=== PATIENT | male | born 1945 | race Caucasian/White ===

== ENCOUNTER → 2018-07-23 11:34 | Outpatient (CLI) | payer OTHER, SELFPAY ==
--- NOTE | 2018-07-23 | DI.RAD.S_ITS ---
PROCEDURE: XR HIP W PEL IF DONE BILAT 2V INDICATIONS: SCIATICA TECHNIQUE: AP pelvis with lateral view(s) of the left and right hip(s). COMPARISON: None. FINDINGS: Bones: No fractures or dislocations. Pelvic ring appears intact. No suspicious bony lesions. Lower lumbar spondylosis. Moderate bilateral hip degeneration. Associated bilateral marginal spurring and subchondral sclerosis. There is widened appearance of the pubis symphysis. Sacroiliac joints appear normal in alignment. Degenerative para-articular sclerosis is present. Soft tissues: The visualized bowel gas pattern is normal. No suspicious soft tissue calcifications. IMPRESSION: Moderate bilateral hip degeneration. Lower lumbar degenerative disc disease. Widened appearance of the pubis symphysis, probably chronic although recommend clinical correlation. Dictated by: Brent Montero M.D. on 07/23/2018 at 14:40 Approved by: Brent Montero M.D. on 07/23/2018 at 14:42
--- NOTE | 2018-07-23 | DI.MRI.S_ITS ---
PROCEDURE: MR LUMBAR SPINE WO CON INDICATIONS: SCIATICA TECHNIQUE: Noncontrast sagittal T1 spin echo and T2 fast echo, sagittal STIR, axial T1 and T2 fast spin echo through the lumbar spine. In cases with scoliosis, additional coronal T2 fast spin echo may be performed. COMPARISON: [facility], CR, XR LUMBAR SPINE 2-3V, 07/23/2018, 12:25. FINDINGS: Image quality: Excellent. Alignment and Curvature: Mild levoconvex scoliotic curvature is noted. There is minimal anterolisthesis at L3-L4 and L4-L5 and minimal retrolisthesis at L5-S1. Bone Marrow: Marrow is of normal overall signal. No acute vertebral body compression fractures. Spinal Cord: Conus medullaris terminates at the L1 level. Visualized cord demonstrates normal signal and size. Paraspinous Soft Tissues: No paravertebral masses. T12-L1: No significant abnormality is seen. L1-L2: Moderate loss of disc height is seen. Loss of disc signal is seen. Mild to moderate disc bulge is seen. At least moderate facet hypertrophy is seen, with associated fluid within the facet joints themselves. There is mild right-sided and no significant left-sided neural foraminal narrowing seen. Moderate to severe central canal narrowing is seen, which is exacerbated by prominent epidural fat. This can be seen on series 6 image 10. L2-L3: Moderate to severe loss of disc height and disc signal are seen. Moderate disc bulge is seen, which is eccentric to the right. Moderate facet hypertrophy is seen, with associated moderate hypertrophy of the ligamentum flavum. There is mild right-sided and no significant left-sided neural foraminal narrowing seen. Moderate to severe central canal narrowing is seen, which is exacerbated by prominent epidural fat, particularly on the left, as on series 6 image 16. L3-L4: Moderate loss of disc height is seen. Loss of disc signal is seen. Moderate to prominent disc bulge is seen. There is a superimposed central/right disc extrusion, with superior migration of the disc material. Moderate facet hypertrophy is seen, with associated moderate hypertrophy of the ligamentum. Moderate to severe bilateral neural foraminal narrowing is seen. There is a degree of compression seen upon the exiting nerve roots. Severe central canal narrowing is seen at this level, as on series 6 image 21. This is exacerbated by prominent epidural fat. L4-L5: Mild loss of disc height is seen. Loss of disc signal is seen. Moderate disc bulge is seen, which is eccentric to the right. Moderate to prominent facet hypertrophy is seen. There is fluid within the left facet joint. There is moderate hypertrophy of the ligamentum flavum. There is at least moderate bilateral neural foraminal narrowing seen. There is severe central canal narrowing seen, as on series 6 image 27. L5-S1: Moderate to severe loss of disc height and disc signal are seen. Moderate generalized disc bulge is seen. Moderate facet joint hypertrophy is seen. There is moderate right-sided and at least moderate left-sided neural foraminal narrowing seen. Mild central canal narrowing is seen. IMPRESSION: Multiple levels of relatively prominent degenerative change are seen, including severe central canal narrowing at L3-L4 and L4-L5 and moderate to severe central canal narrowing at L1-L2 and L2-L3. At L3-L4 level, there is a central/right disc extrusion seen. Moderate to severe bilateral neural foraminal narrowing is seen at L3-L4, with associated L3 nerve root compression. Dictated by: Homar Velazquez M.D. on 07/23/2018 at 12:34 Approved by: Homar Velazquez M.D. on 07/23/2018 at 12:41
--- NOTE | 2018-07-23 | DI.RAD.S_ITS ---
PROCEDURE: XR LUMBAR SPINE 2-3V INDICATIONS: SCIATICA TECHNIQUE: 3 views of the lumbar spine were acquired. COMPARISON: [facility], MR, MR LUMBAR SPINE WO CON, 07/23/2018, 11:51. FINDINGS: Bones: 5 nonrib-bearing, lumbar type vertebral bodies are seen. Mild anterolisthesis is seen at L4-L5. Mild levoconvex scoliotic curvature is noted. No displaced fractures are seen. No suspicious lytic or blastic lesions are seen. Moderate disc space narrowing is seen at L1-L2 L3, and L3-L4. Moderate to severe disc space narrowing is seen at L5-S1. Endplate irregularity and sclerosis are seen, which are most prominent at L5-S1. Facet arthropathy is seen throughout, which is most prominent at L5-S1. Soft tissues: Overlying bowel gas pattern is normal. No suspicious soft tissue calcifications. IMPRESSION: Multiple levels of lumbar spine degenerative change are seen, which are most prominent at L5-S1. Grade 1 anterolisthesis is seen at L4-L5. Mild levoconvex scoliosis is seen. Dictated by: Homar Velazquez M.D. on 07/23/2018 at 13:35 Approved by: Homar Velazquez M.D. on 07/23/2018 at 13:37
== END ==
PROVIDERS: PCP Family Medicine; Visit Provider Family Medicine
DX: M47.26 Other spondylosis with radiculopathy, lumbar region (principal); M47.27 Other spondylosis with radiculopathy, lumbosacral region; M51.16 Intervertebral disc disorders with radiculopathy, lumbar region; M51.17 Intervertebral disc disorders with radiculopathy, lumbosacral region; M48.061 Spinal stenosis, lumbar region without neurogenic claudication; M48.07 Spinal stenosis, lumbosacral region; M16.0 Bilateral primary osteoarthritis of hip; M84.351S Stress fracture, right femur, sequela; M43.16 Spondylolisthesis, lumbar region; M41.9 Scoliosis, unspecified
CPT/HCPCS: 72100; 72148; 73521

== ENCOUNTER → 2021-01-12 11:49 | Outpatient (CLI) | payer MEDICARE, SELFPAY ==
[2021-01-12 19:09] LABS: Hemoglobin A1C% w Est Avg Glu 5.8 % (4.0-6.0)
[2021-01-12 19:10] LABS: Cholesterol 221 mg/dL (140-199); HDL Cholesterol 56 mg/dL (40-60); LDL Cholesterol Calculated 138 mg/dL (<100); Triglycerides 136 mg/dL (35-150)
[2021-01-12 19:14] LABS: Alanine Aminotransferase 28 IU/L (<50); Albumin 4.2 g/dL (3.5-5.0); Albumin Globulin Ratio 1.4 (1.0-2.8); Alkaline Phosphatase 80 U/L (38-126); Aspartate Aminotransferase 32 IU/L (17-59); BUN Creatinine Ratio 24.8 (6-22); Bilirubin Total 0.7 mg/dL (0.2-1.3); Blood Urea Nitrogen 28 mg/dL (9-20); Calcium 9.8 mg/dL (8.4-10.2); Carbon Dioxide 24 mmol/L (22-32); Chloride 106 mmol/L (98-107); Estimated Glomerular Filt Rate > 60.0 mL/min (>60); Globulin 3.1 g/dL (1.7-4.1); Glucose 99 mg/dL (80-110); HEMOLYSIS < 15 (0-50); Potassium 4.6 mmol/L (3.4-5.1); Sodium 141 mmol/L (137-145); Total Protein 7.3 g/dL (6.3-8.2)
[2021-01-12 19:39] LABS: TSH w/ Reflex to FT4 1.75 uIU/mL (0.47-4.68)
== END ==
PROVIDERS: PCP Family Medicine; Referring Provider Family Medicine; Visit Provider Family Medicine
DX: E78.00 Pure hypercholesterolemia, unspecified (principal); I10 Essential (primary) hypertension; M48.061 Spinal stenosis, lumbar region without neurogenic claudication; N18.30 Chronic kidney disease, stage 3 unspecified; N40.0 Benign prostatic hyperplasia without lower urinary tract symptoms; Z68.43 Body mass index [BMI] 50.0-59.9, adult
CPT/HCPCS: 80053; 80061; 83036; 84443

== ENCOUNTER → 2021-05-30 11:26 | Outpatient (CLI) | payer MEDICARE, SELFPAY ==
--- NOTE | 2021-05-30 | DI.MRI.S_ITS ---
PROCEDURE: MR BRAIN (IAC) WWO CON INDICATIONS: Sudden idiopathic hearing loss, right ear TECHNIQUE: Noncontrast sagittal T1 spin echo, axial FLAIR, axial gradient echo, axial diffusion and ADC through the brain. Axial thin-slice 3D CISS, coronal TruFISP, axial T1 spin echo with fat saturation through the internal auditory canals. After the administration of contrast, thin slice axial and coronal T1 spin echo with fat saturation through the internal auditory canals, and axial T1 spin echo with fat saturation through the brain. COMPARISON: None. FINDINGS: Image quality: Excellent. Cranial nerves: No cerebellopontine angle masses. Visualized cranial nerves demonstrate no areas of abnormal signal, mass lesion or enhancement. 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 No extra-axial fluid collections. Basal cisterns are patent. Brain: No intracranial bleeds or mass effects. [place]-white matter interface is intact. No abnormal intracranial enhancement. Diffusion weighted images demonstrate no acute ischemic insults. Brainstem appears normal. Normal intravascular flow voids are present. Skull and face: Calvarial marrow signal is normal. Orbits appear normal. Sinuses: Sinuses and mastoids are clear. IMPRESSION: Cerebellopontine angles demonstrate no mass lesion, abnormal signal or enhancement. 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 Dictated by: Bria Ndiaye M.D. on 05/30/2021 at 21:14 Approved by: Bria Ndiaye M.D. on 05/30/2021 at 21:16
--- NOTE | 2021-05-30 11:28 | DI.MRI.S_ITS ---
PROCEDURE: MR LUMBAR SPINE WO CON INDICATIONS: Progressive lower back pain with increasing radiculopathy TECHNIQUE: Noncontrast sagittal T1 spin echo and T2 fast echo, sagittal STIR, axial T1 and T2 fast spin echo through the lumbar spine. In cases with scoliosis, additional coronal T2 fast spin echo may be performed. COMPARISON: [facility], MR, MR LUMBAR SPINE WO CON, 07/23/2018, 11:51. [facility] ([place] CR, XR LUMBAR SPINE 2-3V, 01/12/2021, 11:42. CR, XR LUMBAR SPINE 2-3V, 07/23/2018, 12:25. FINDINGS: Image quality: Excellent. Alignment and Curvature: There is normal bony alignment. Bone Marrow: Marrow is of normal overall signal. No acute vertebral body compression fractures. Spinal Cord: Conus medullaris terminates at the L1 level. Visualized cord demonstrates normal signal and size. Paraspinous Soft Tissues: No paravertebral masses. T12-L1: Loss of disc signal. Mild to moderate diffuse disc bulge. Moderate bilateral facet hypertrophy. Moderate narrowing of the central canal. Mild bilateral neural foraminal narrowing. No neural compression L1-L2: Loss of disc signal and height. Mild to moderate diffuse disc bulge. Moderate bilateral facet hypertrophy. Moderate narrowing of the central canal. Mild bilateral neural foraminal narrowing. No neural compression. L2-L3: Loss of disc signal. Mild, diffuse disc bulge. Moderate bilateral facet hypertrophy. Moderate narrowing of the central canal. No neural foraminal narrowing. No neural compression. L3-L4: Loss of disc signal and height. Moderate, diffuse disc bulge. Moderate to severe bilateral facet hypertrophy. Mild ligamentum flavum hypertrophy. Moderate to severe narrowing of the central canal. Moderate right and moderate to severe left neural foraminal narrowing with slight compression of the exiting left L3 nerve root. L4-L5: Loss of disc signal and slight loss of disc height. Mild, diffuse disc bulge severe bilateral facet hypertrophy. Severe narrowing of the central canal with compression of the nerve roots of the cauda equina. Mild to moderate right and moderate left neural foraminal narrowing. L5-S1: Loss of disc signal and height. Moderate, diffuse disc bulge. Mild bilateral facet hypertrophy. Mild narrowing of the central canal. Mild right and severe left neural foraminal narrowing with compression of the exiting left L5 nerve root. IMPRESSION: 1. Multilevel degenerative disc disease. 2. Multilevel facet arthropathy. 3. Severe L4-L5 central canal narrowing with compression of the nerve roots of the cauda equina. 4. Severe left L5-S1 neural foraminal narrowing with compression of the exiting left L5 nerve root. Moderate to severe left L3-L4 neural foraminal narrowing with slight compression of the exiting left L3 nerve root. Dictated by: Sharee Heck MD, PhD on 05/30/2021 at 17:29 Approved by: Sharee Heck MD, PhD on 05/30/2021 at 17:34
== END ==
PROVIDERS: PCP Family Medicine; Referring Provider Otolaryngology; Visit Provider Otolaryngology
DX: M48.061 Spinal stenosis, lumbar region without neurogenic claudication (principal); H90.3 Sensorineural hearing loss, bilateral; M51.16 Intervertebral disc disorders with radiculopathy, lumbar region; M51.17 Intervertebral disc disorders with radiculopathy, lumbosacral region; M47.26 Other spondylosis with radiculopathy, lumbar region; M47.27 Other spondylosis with radiculopathy, lumbosacral region; M48.07 Spinal stenosis, lumbosacral region
CPT/HCPCS: 70553; 72148; A9579

== ENCOUNTER → 2021-12-20 12:36 | Outpatient (CLI) | payer MEDICARE, SELFPAY ==
[2021-12-21 03:02] LABS: Hematocrit 44.8 % (41-53); Hemoglobin 14.8 g/dL (13.5-17.5); Mean Corpuscular HGB Conc 33.1 % (30-36); Mean Corpuscular Hemoglobin 29.9 PG (26-34); Mean Corpuscular Volume 90.4 fL (80-100); Platelet Count 225 X10^3/uL (150-400); Red Blood Cell Count 4.96 X10^6/uL (4.5-5.9); Red Cell Distribution Width 14.7 % (11.6-14.8); White Blood Cell Count 6.9 X10^3/uL (4.5-11.0)
[2021-12-21 03:08] LABS: Add Manual Diff / Slide Review YES
[2021-12-21 04:28] LABS: Hemoglobin A1C% w Est Avg Glu 5.7 % (4.0-6.0)
[2021-12-21 04:36] LABS: Cholesterol 177 mg/dL (140-199); HDL Cholesterol 54 mg/dL (40-60); LDL Cholesterol Calculated 107 mg/dL (<100); Triglycerides 81 mg/dL (35-150)
[2021-12-21 04:47] LABS: Alanine Aminotransferase 22 IU/L (<50); Albumin 3.8 g/dL (3.5-5.0); Albumin Globulin Ratio 1.4 (1.0-2.8); Alkaline Phosphatase 69 U/L (38-126); Aspartate Aminotransferase 25 IU/L (17-59); BUN Creatinine Ratio 26.5 (6-22); Bilirubin Total 0.7 mg/dL (0.2-1.3); Blood Urea Nitrogen 27 mg/dL (9-20); Calcium 9.5 mg/dL (8.4-10.2); Carbon Dioxide 27 mmol/L (22-32); Chloride 105 mmol/L (98-107); Estimated Glomerular Filt Rate > 60 mL/min (>60); Globulin 2.8 g/dL (1.7-4.1); Glucose 91 mg/dL (80-110); HEMOLYSIS < 15 (0-50); Potassium 4.7 mmol/L (3.4-5.1); Sodium 140 mmol/L (137-145); Total Protein 6.6 g/dL (6.3-8.2)
[2021-12-21 05:08] LABS: Prostate Specific Antigen Scrn 5.62 ng/mL (0.1-4.0)
[2021-12-21 07:15] LABS: Neutrophils Absolute Manual 4485 /uL (3000-5900); Total Cells Counted 100
[2021-12-21 07:16] LABS: RBC Morphology Normal Morphology
== END ==
PROVIDERS: PCP Family Medicine; Visit Provider Family Medicine
DX: Z11.59 Encounter for screening for other viral diseases (principal); Z12.11 Encounter for screening for malignant neoplasm of colon; Z12.5 Encounter for screening for malignant neoplasm of prostate; Z13.1 Encounter for screening for diabetes mellitus; Z13.220 Encounter for screening for lipoid disorders; E78.5 Hyperlipidemia, unspecified; I10 Essential (primary) hypertension; R73.9 Hyperglycemia, unspecified
CPT/HCPCS: 80053; 80061; 82947; 83036; 85007; 85025; G0103

== ENCOUNTER → 2022-08-15 10:36 | Outpatient (CLI) | payer MEDICARE, SELFPAY ==
[2022-08-15 19:20] LABS: Add Manual Diff / Slide Review NO; Basophils Absolute Auto 0 /uL (0-100); Basophils Percent Auto 0.4 % (0-2); Eosinophils Absolute Auto 100 /uL (0-450); Eosinophils Percent Auto 0.9 % (2-4); Hematocrit 45.3 % (41-53); Hemoglobin 15.4 g/dL (13.5-17.5); Lymphocytes Absolute Auto 1400 /uL (1100-4500); Lymphocytes Percent Auto 17.9 % (25-40); Mean Corpuscular Hemoglobin 30.5 PG (26-34); Mean Corpuscular Volume 89.7 fL (80-100); Monocytes Absolute Auto 700 /uL (0-900); Monocytes Percent Auto 8.4 % (3-14); Neutrophils Absolute Auto 5800 /uL (1500-7000); Neutrophils Percent Auto 72.4 % (50-75); Platelet Count 200 X10^3/uL (150-400); Red Blood Cell Count 5.05 X10^6/uL (4.5-5.9); Red Cell Distribution Width 14.6 % (11.6-14.8)
[2022-08-15 19:24] LABS: Alanine Aminotransferase 21 IU/L (<50); Albumin 3.8 g/dL (3.5-5.0); Albumin Globulin Ratio 1.4 (1.0-2.8); Alkaline Phosphatase 89 U/L (38-126); Aspartate Aminotransferase 25 IU/L (17-59); BUN Creatinine Ratio 20.5 (6-22); Bilirubin Total 0.8 mg/dL (0.2-1.3); Blood Urea Nitrogen 25 mg/dL (9-20); Calcium 9.3 mg/dL (8.4-10.2); Carbon Dioxide 27 mmol/L (22-32); Chloride 103 mmol/L (98-107); Cholesterol 194 mg/dL (140-199); Estimated Glomerular Filt Rate > 60 mL/min (>60); Globulin 2.8 g/dL (1.7-4.1); Glucose 86 mg/dL (80-110); HDL Cholesterol 53 mg/dL (40-60); HEMOLYSIS < 15 (0-50); LDL Cholesterol Calculated 120 mg/dL (<100); Potassium 4.6 mmol/L (3.4-5.1); Sodium 137 mmol/L (137-145); Total Protein 6.6 g/dL (6.3-8.2); Triglycerides 107 mg/dL (35-150)
[2022-08-15 19:39] LABS: Creatinine Urine Random 152.3 mg/dL
[2022-08-15 19:43] LABS: Microalbumi Creatinin Ratio Ur 24.2 ug/mg CR (<30); Microalbumin Urine Random 3.7 mg/dL (0-1.6)
[2022-08-15 19:50] LABS: Prostate Specific Antigen 6.23 ng/mL (0.10-4.00)
[2022-08-17 02:32] LABS: Labcorp Hemoglobin (Hb) A1c 5.8 % (4.8-5.6)
[2022-08-19 17:48] LABS: Hep C Virus Ab w/Reflex Quant NEGATIVE s/c (NEGATIVE)
== END ==
PROVIDERS: PCP Family Medicine; Visit Provider Family Medicine
DX: R73.03 Prediabetes (principal); Z11.59 Encounter for screening for other viral diseases; E78.2 Mixed hyperlipidemia; E78.5 Hyperlipidemia, unspecified; N13.8 Other obstructive and reflux uropathy; N18.32 Chronic kidney disease, stage 3b; I10 Essential (primary) hypertension; N40.1 Benign prostatic hyperplasia with lower urinary tract symptoms; R97.20 Elevated prostate specific antigen [PSA]
CPT/HCPCS: 80053; 80061; 82043; 82570; 83036; 84153; 85025; 86803

== ENCOUNTER → 2022-11-18 09:00 | Outpatient (CLI) | payer MEDICARE, SELFPAY ==
[2022-11-18 20:13] LABS: Cholesterol 175 mg/dL (140-199); HDL Cholesterol 58 mg/dL (40-60); LDL Cholesterol Calculated 101 mg/dL (<100); Triglycerides 81 mg/dL (35-150)
[2022-11-18 20:20] LABS: Hemoglobin A1C% w Est Avg Glu 5.3 % (4.0-6.0)
[2022-11-18 20:43] LABS: Prostate Specific Antigen 7.16 ng/mL (0.10-4.00)
== END ==
PROVIDERS: PCP Family Medicine; Visit Provider Family Medicine
DX: E78.2 Mixed hyperlipidemia (principal); R73.03 Prediabetes; R97.20 Elevated prostate specific antigen [PSA]; Z68.43 Body mass index [BMI] 50.0-59.9, adult
CPT/HCPCS: 80061; 83036; 84153

== ENCOUNTER → 2023-02-11 13:01 | Outpatient (CLI) | payer MEDICARE, SELFPAY ==
[2023-02-14 07:18] LABS: PSA, Total 5.2 ng/mL (0.0-4.0)
== END ==
PROVIDERS: PCP Family Medicine; Visit Provider Family Medicine
DX: R97.20 Elevated prostate specific antigen [PSA] (principal)
CPT/HCPCS: 84153; 84154

== ENCOUNTER → 2023-12-08 09:28 | Outpatient (CLI) | payer MEDICARE, SELFPAY ==
[2023-12-08 20:26] LABS: Add Manual Diff / Slide Review NO; Basophils Absolute Auto 0 /uL (0-100); Basophils Percent Auto 0.4 % (0-2); Eosinophils Absolute Auto 100 /uL (0-450); Eosinophils Percent Auto 0.9 % (2-4); Hemoglobin 14.1 g/dL (13.5-17.5); Lymphocytes Absolute Auto 1300 /uL (1100-4500); Lymphocytes Percent Auto 17.3 % (25-40); Mean Corpuscular HGB Conc 33.5 % (30-36); Mean Corpuscular Hemoglobin 30.4 PG (26-34); Mean Corpuscular Volume 90.9 fL (80-100); Monocytes Absolute Auto 600 /uL (0-900); Monocytes Percent Auto 7.5 % (3-14); Neutrophils Absolute Auto 5600 /uL (1500-7000); Neutrophils Percent Auto 73.9 % (50-75); Platelet Count 254 X10^3/uL (150-400); Red Blood Cell Count 4.62 X10^6/uL (4.5-5.9); Red Cell Distribution Width 15.6 % (11.6-14.8); White Blood Cell Count 7.5 X10^3/uL (4.5-11.0)
[2023-12-08 20:37] LABS: Hemoglobin A1C% w Est Avg Glu 5.6 % (4.0-6.0)
[2023-12-08 20:39] LABS: BUN Creatinine Ratio 30.2 (6-22); Blood Urea Nitrogen 35 mg/dL (9-20); Calcium 9.8 mg/dL (8.4-10.2); Carbon Dioxide 24 mmol/L (22-32); Chloride 108 mmol/L (98-107); Cholesterol 227 mg/dL (140-199); Estimated Glomerular Filt Rate > 60 mL/min (>60); Glucose 90 mg/dL (80-110); HDL Cholesterol 59 mg/dL (40-60); HEMOLYSIS < 15 (0-50); LDL Cholesterol Calculated 149 mg/dL (<100); Potassium 4.7 mmol/L (3.4-5.1); Sodium 140 mmol/L (137-145); Triglycerides 96 mg/dL (35-150)
[2023-12-08 21:05] LABS: Prostate Specific Antigen 11.2 ng/mL (0.10-4.00)
[2023-12-08 21:31] LABS: Creatinine Urine Random 88.81 mg/dL
[2023-12-08 21:39] LABS: Microalbumin Urine Random 1.5 mg/dL (0-1.6)
== END ==
PROVIDERS: PCP Family Medicine; Visit Provider Family Medicine
DX: I10 Essential (primary) hypertension (principal); R73.03 Prediabetes; E78.2 Mixed hyperlipidemia; M85.80 Other specified disorders of bone density and structure, unspecified site; Z68.42 Body mass index [BMI] 45.0-49.9, adult; R97.20 Elevated prostate specific antigen [PSA]
CPT/HCPCS: 80048; 80061; 82043; 82570; 83036; 84153; 84155; 84165; 85025

== ENCOUNTER → 2024-03-02 11:02 | Outpatient (CLI) | payer MEDICARE, SELFPAY ==
--- NOTE | 2024-03-02 11:04 | DI.MRI.S_ITS ---
PROCEDURE: MR PELVIC PROSTATE PROTOCOL INDICATIONS: Elevated and rising PSA TECHNIQUE: Coronal HASTE, axial T1 FSE with fat saturation, 3-plane nonbreath-hold T2 FSE. After the administration of contrast, dynamic axial, delayed axial and coronal VIBE or 2-D FLASH with fat saturation through the pelvis. Diffusion weighted imaging and ADC was performed. COMPARISON: None. FINDINGS: Image quality: Diffusion weighted and dynamic contrast enhanced images are diagnostic. Prostate: Gland size is 4.1 x 4.6 x 5 cm; ellipsoid gland volume is 49 mL. PSA density is estimated at 0.115 Lenticular shape PI-RADS 5 lesion is seen in the left lateral peripheral zone mid gland (/, 6/) measured 1.5 x 0.8 x 0.9 cm. No definite extracapsular disease. T2 score 5. DWI score 5. DCE positive. The extent capsular contact for this lesion raises concern for micro capsular involvement if targeted biopsies are positive. The seminal vesicles are unremarkable. Transitional zone heterogenous nodules are present, either well encapsulated or mostly encapsulated, compatible with PI-RADS 1 or 2 likely BPH nodules. Genitourinary system: Probable small bladder stones are present, trabeculated bladder may be from chronic obstruction. Bowel and peritoneum: Colonic diverticula. No small bowel obstruction in the lower abdomen. No pathologic ascites Nodes and vessels: No pathologic lymph nodes seen by size criteria. No aneurysmal vessel within the field of view Soft tissues: Pelvic wall is unremarkable Bones: There is an ill-defined enhancing lesion in the right posterior iliac bone (22/135). IMPRESSION: PI-RADS 5 lesion measuring up to 1.5 cm in the left mid gland lateral peripheral zone. There is a right posterior iliac enhancing bone lesion. The patient's PSA density is not necessarily in the range that would suggest widespread metastatic disease, however this lesion remains indeterminate by MRI. Bone scan or prostate PET-CT could be helpful. This is also amenable to CT-guided sampling if necessary. Dictated by: Alexander Lay M.D. on 03/02/2024 at 14:07 Approved by: Alexander Lay M.D. on 03/02/2024 at 14:16
== END ==
PROVIDERS: PCP Family Medicine; Referring Provider Urology; Visit Provider Urology
DX: N42.9 Disorder of prostate, unspecified (principal); M89.9 Disorder of bone, unspecified; R97.20 Elevated prostate specific antigen [PSA]; K57.90 Diverticulosis of intestine, part unspecified, without perforation or abscess without bleeding; N32.89 Other specified disorders of bladder
CPT/HCPCS: 72197; A9579

== ENCOUNTER 2024-04-15 07:49 | Outpatient (CLI) | payer MEDICARE, OTHER, SELFPAY ==
[2024-04-15] VITALS (8 sets, daily range): BP systolic 111–152; BP diastolic 64–82; PULSE 61–79; RESP 11–19; TEMP 36; O2SAT 96–98
--- NOTE | 2024-04-15 07:55 | DI.RAD.S_ITS ---
PROCEDURE: PAIN L INTERLAMINAR/CAUDAL INJ INDICATIONS: para left L4/5 TL DARIEN COMPARISON: None. FINDINGS/IMPRESSION: Fluoroscopic spot filming was performed to verify placement of spinal needles at the L4-5 level(s), as labeled on the films. Appropriate location(s) of the needle tip(s) was confirmed by injection of iodinated contrast. Dictated by: Elliott Hobbs M.D. on 04/15/2024 at 11:26 Approved by: Elliott Hobbs M.D. on 04/15/2024 at 11:28
[2024-04-15] MEDS: MIDAZOLAM 2 MG/2 ML VIAL IV (08:52)
--- NOTE | 2024-04-15 08:56 | PC.NURSE ---
Patient identified to be in afib with a rate in the 70's-80's during the timeout. Dr. Brunner aware. rhythm printed for patient to take to his PCP.
[2024-04-15] MEDS: BETAMETHASONE 30 MG/5 ML MDV 12 MG INJ (08:59)
[2024-04-15] MEDS: BUPIVACAINE 0.25% (PF) VIAL 2 ML INJ (08:59)
[2024-04-15] MEDS: iopamidoL 15 ML VIAL 3 ML INJ (09:00)
[2024-04-15] MEDS: DEXAMETHASONE 10 MG/ML VIAL INJ (09:00)
--- NOTE | 2024-04-15 09:07 | P.PCN_ITS ---
Date/Time/Diagnoses Date of procedure: 04/15/24 Time of procedure: 09:08 Pre-procedure diagnosis: 1. HNP WITH RADICULAR FEATURES, 2. MULTILEVEL CENTRAL STENOSIS, Post-procedure diagnosis: same Procedure Notes Procedure: 1. FLUOROSCOPICALLY GUIDED CONTRAST CONTROLLED INTERLAMINAR EPIDURAL STEROID INJECTION -L4/5 Indications: John is referred by Dr. Boone for treatment of Bilateral Foraminal Stenosis R>L LE symptoms. Physician: Kvng Brunner Total Fluoroscopy time (seconds): 7 Total sedation minutes: 11 Complications: none Procedure in detail & Post-procedure care: FINDINGS Multilevel Central Spinal Stenosis with Nerve Root Compression DESCRIPTION OF PROCEDURE Fluoroscopically guided, contrast-controlled L4/5 translaminar epidural steroid injection. Following review of allergy and review of potential side effects and complications, including, but not necessarily limited to, infection, allergic reaction, local tissue breakdown, temporary as well as permanent nerve injury, paralysis, stroke and possible , the patient indicated that the patient understood and agreed to proceed. An informed consent document was signed by the patient, witnessed by a nurse, and placed in the patient's chart. Additionally, other treatment options including modalities, medications, and physical therapy were reviewed with the patient. After review of previous anaesthesic history and IV conscious sedation the patient was deemed safe to proceed with today?s procedure with IV conscious sedation as ASA class II designation. Safety time-out was performed to confirm patient ID, procedure to be performed and site of procedure. IV sedation was accomplished with a combination of 2mg of Versed was administered by the RN after DO order, titrated to patient comfort during the course of the procedure while the patient remained responsive to all verbal commands In the prone position, following sterile prep and drape of the lumbar region, the L4/5 translaminar space was identified fluoroscopically. The skin was anesthetized via a 25-gauge, 1.5inch needle with 1% lidocaine solution. At this point, a 22-gauge short bevel spinal needle was atraumatically introduced and advanced under fluoroscopic guidance into the region of the L4/5 translaminar space. Depth was confirmed on lateral view. Radiological data, including multiple fluoroscopic views of the lumbar spine, reveal a spinal needle at the L4/5 translaminar space. Lateral views then show placement of the needle in the epidural space. Subsequent views show contrast material flowing superiorly and inferiorly in the epidural space. No vascular or intrathecal uptake is observed. At this point, using loss of resistance technique with saline and air, the epidural space was entered. This was confirmed following negative aspiration with injection of approximately 1.5cc of Isovue 200, showing excellent epidural flow without vascular or intrathecal uptake. At this point, 1cc of 1% lidocaine solution combined with 2cc or 10mg of dexamethasone and 6mg betamethasone was injected without incident. The patient tolerated the procedure well without signs or symptoms of complications prior to transfer to the recovery area continued monitoring without incident. The patient was then transferred to the recovery area where they were observed for an appropriate period of time after the injection. The patient reported a VAS score of 8 prior to the procedure and a post- procedure VAS of 1. POST OP INSTRUCTIONS The patient was provided a Pain Log to continue to record their response to the target-specific procedure prior to follow-up visit with their referring physician. Additionally, specific post-injection care instructions and a contact number to our office were provided if concerns arise regarding possible complications associated with the procedure are suspected.
== END 2024-04-15 09:32 | disposition home or self-care (01) ==
LOC: RAD 07:54
PROVIDERS: PCP Family Medicine; Referring Provider Physical Medicine & Rehabilitation; Visit Provider Physical Medicine & Rehabilitation
DX: M51.16 Intervertebral disc disorders with radiculopathy, lumbar region (principal); M48.061 Spinal stenosis, lumbar region without neurogenic claudication
CPT/HCPCS: 62323; 99152; J0702; J1100; J2250; J3490

== ENCOUNTER → 2024-05-26 10:44 | Outpatient (CLI) | payer MEDICARE, OTHER, SELFPAY ==
[2024-05-26 19:31] LABS: Add Manual Diff / Slide Review NO; Basophils Absolute Auto 0 /uL (0-100); Basophils Percent Auto 0.5 % (0-2); Eosinophils Absolute Auto 100 /uL (0-450); Eosinophils Percent Auto 0.8 % (2-4); Hematocrit 40.8 % (41-53); Hemoglobin 13.4 g/dL (13.5-17.5); Lymphocytes Absolute Auto 1300 /uL (1100-4500); Lymphocytes Percent Auto 17.7 % (25-40); Mean Corpuscular HGB Conc 32.9 % (30-36); Mean Corpuscular Hemoglobin 30.5 PG (26-34); Mean Corpuscular Volume 92.5 fL (80-100); Monocytes Absolute Auto 600 /uL (0-900); Monocytes Percent Auto 8.9 % (3-14); Neutrophils Absolute Auto 5100 /uL (1500-7000); Neutrophils Percent Auto 72.1 % (50-75); Platelet Count 210 X10^3/uL (150-400); Red Blood Cell Count 4.41 X10^6/uL (4.5-5.9); Red Cell Distribution Width 15.1 % (11.6-14.8); White Blood Cell Count 7.1 X10^3/uL (4.5-11.0)
[2024-05-26 19:35] LABS: BUN Creatinine Ratio 22.6 (6-22); Blood Urea Nitrogen 26 mg/dL (9-20); Calcium 9.5 mg/dL (8.4-10.2); Carbon Dioxide 25 mmol/L (22-32); Chloride 109 mmol/L (98-107); Cholesterol 148 mg/dL (140-199); Estimated Glomerular Filt Rate > 60 mL/min (>60); Glucose 99 mg/dL (80-110); HDL Cholesterol 71 mg/dL (40-60); HEMOLYSIS < 15 (0-50); LDL Cholesterol Calculated 65 mg/dL (<100); Potassium 4.7 mmol/L (3.4-5.1); Sodium 142 mmol/L (137-145); Triglycerides 62 mg/dL (35-150)
[2024-05-26 19:50] LABS: Hemoglobin A1C% w Est Avg Glu 5.4 % (4.0-6.0)
[2024-05-26 20:05] LABS: Prostate Specific Antigen Scrn 7.99 ng/mL (0.1-4.0)
== END ==
PROVIDERS: PCP Family Medicine; Visit Provider Family Medicine
DX: R97.20 Elevated prostate specific antigen [PSA] (principal); E78.2 Mixed hyperlipidemia; Z12.5 Encounter for screening for malignant neoplasm of prostate; R73.03 Prediabetes; I10 Essential (primary) hypertension
CPT/HCPCS: 80048; 80061; 83036; 85025; G0103

== ENCOUNTER → 2024-07-26 10:06 | Outpatient (CLI) | payer MEDICARE, OTHER, SELFPAY ==
--- NOTE | 2024-07-26 10:08 | DI.CT.S_ITS ---
PROCEDURE: CT ABDOMEN PELVIS W CON INDICATIONS: New diagnosis prostate cancer TECHNIQUE: After the administration of intravenous contrast, axial sections acquired from the lung bases to the pubic symphysis. Coronal and sagittal reformats were performed. For radiation dose reduction, the following was used: automated exposure control, adjustment of mA and/or kV according to patient size. COMPARISON: [facility], , MR PELVIC PROSTATE PROTOCOL, 03/02/2024, 11:26. FINDINGS: Image quality: Diagnostic. Lower Chest: Cardiomegaly. Aortic valve calcifications. No suspicious pulmonary nodules. ABDOMEN: Liver: No solid mass. Gallbladder: Gallbladder sludge versus small stones. No wall thickening or pericholecystic edema to suggest acute cholecystitis. Biliary ducts: No biliary dilation. Pancreas: No ductal dilation. Spleen: Size is within normal limits. Adrenal Glands: No adrenal nodules. Kidneys and Ureters: No hydronephrosis. No solid mass. No complex renal cystic lesion which requires follow up. 5 millimeter nonobstructing left-sided nephrolithiasis. Stomach and Bowel: Normal colonic caliber, without significant wall thickening. Colonic diverticulosis without evidence of diverticulitis. Peritoneum: No abnormal intraperitoneal fluid. No free air. Ventral Wall: No significant ventral hernia. Abdominal Nodes: No retroperitoneal or mesenteric adenopathy by size criteria. Vessels: Aorta and inferior vena cava are normal in size. Splenic artery aneurysm measuring 1.0 centimeter. PELVIS: Pelvic Organs: Unremarkable. Bladder: A pair of bladder stones measuring 1 centimeter and 0.7 centimeter (series 5, image 95) Pelvic Nodes: No enlarged lymph nodes. Miscellaneous: No inguinal hernias are seen. Bones: No aggressive osseous abnormality. Degenerative disc disease of the lumbar spine. Moderate to severe spinal canal narrowing at L4-5 and L3-4 due to degenerative disc disease and facet arthrosis. Sclerosis about the sacroiliac joints, probably degenerative given the vacuum disc phenomena present. Dense bony lesion in the left iliac bone measuring 0.8 centimeter, with Hounsfield units consistent with a bone island (1017 aspect unit). IMPRESSION: In this patient with a history of prostate cancer, there is no enlarged pelvic chain lymph nodes or aggressive osseous abnormality. A couple of bladder stones measuring 1 centimeter and 0.7 centimeter. Colonic diverticulosis without evidence of diverticulitis. Moderate to severe spinal canal narrowing at L4-5 and L3-4 due to degenerative disc disease and facet arthrosis. Suspected degenerative sacroiliitis. Dictated by: Pillo Urena M.D. on 07/26/2024 at 13:23 Approved by: Pillo Urena M.D. on 07/26/2024 at 13:34
--- NOTE | 2024-07-26 10:08 | DI.NM.S_ITS ---
PROCEDURE: NM BONE SCAN WHOLE BODY RADIOPHARMACEUTICAL: 21.7 mCi Tc-99m MDP IV. INDICATIONS: New diagnosis prostate cancer TECHNIQUE: Delayed whole-body scintigrams were obtained approximately 3-4 hours after intravenous injection of radiotracer. Anterior and posterior views were acquired from vertex to feet. Additional left and right oblique views of the knees and pelvis were obtained. COMPARISON: [facility], CT, CT ABDOMEN PELVIS W CON, 07/26/2024, 11:51. FINDINGS: Physiologic uptake is noted within the kidneys and bladder. There is increased uptake within the knees particularly on the left. Increased uptake is within the ankles as well as small bones of the feet. Increased uptake is also noted within the shoulders bilaterally. IMPRESSION: Multiple areas of increased uptake most suggestive of degenerative change. No definitive metastatic disease is identified. Dictated by: Bria Ndiaye M.D. on 07/26/2024 at 20:50 Approved by: Bria Ndiaye M.D. on 07/26/2024 at 21:05
[2024-07-26 11:29] LABS: Estimated Glomerular Filt Rate 57 mL/min (>60)
== END ==
PROVIDERS: PCP Family Medicine; Referring Provider Urology; Visit Provider Urology
DX: C61 Malignant neoplasm of prostate (principal); R97.20 Elevated prostate specific antigen [PSA]; I51.7 Cardiomegaly; N20.0 Calculus of kidney; K57.90 Diverticulosis of intestine, part unspecified, without perforation or abscess without bleeding; I72.8 Aneurysm of other specified arteries; N21.0 Calculus in bladder; M51.369 Other intervertebral disc degeneration, lumbar region without mention of lumbar back pain or lower extremity pain; M48.061 Spinal stenosis, lumbar region without neurogenic claudication; M47.816 Spondylosis without myelopathy or radiculopathy, lumbar region; M89.9 Disorder of bone, unspecified
CPT/HCPCS: 36415; 74177; 78306; 82565; A9503; Q9967

== ENCOUNTER 2024-08-08 14:00 | Emergency (ER) | payer MEDICARE, OTHER, SELFPAY ==
[2024-08-08] VITALS (21 sets, daily range): BP systolic 89–143; BP diastolic 51–77; PULSE 64–97; RESP 15–24; TEMP 36.9; O2SAT 93–100; BMI 44.3
--- NOTE | 2024-08-08 14:09 | EKG_ITS ---
[id number] [address] Test Date: 2024-08-08 Pat Name: John Brown Department: Room: Gender: Male Surgical Assistant: : 1945 Requested By: Order Number: [id number] Reading MD: Adonay Miranda MD Measurements Intervals [place] Rate: 70 P: IN: QRS: 39 QRSD: 96 T: 186 QT: 344 QTc: 371 Interpretive Statements Atrial flutter Incomplete right bundle branch block Cannot rule out Anteroseptal infarct , age undetermined ST & T wave abnormality, consider lateral ischemia NO PRIOR TRACING Electronically Signed On 08-09-2024 7:28:19 PDT by Adonay Miranda MD
--- NOTE | 2024-08-08 14:17 | DI.RAD.S_ITS ---
PROCEDURE: XR CHEST 1V INDICATIONS: Shortness of breath TECHNIQUE: One view of the chest was acquired. COMPARISON: [facility], CT, CT ABDOMEN PELVIS W CON, 07/26/2024, 11:51. FINDINGS: Surgical changes and devices: None. Lungs and pleura: There is blunting of the left costophrenic angle. The right lung appears clear. No pneumothorax is seen. Generalized interstitial prominence is seen. No focal infiltrates are seen. Mediastinum: Mediastinal contours appear normal. Heart size is moderately enlarged. Bones and chest wall: No suspicious bony lesions. Age-appropriate bony degenerative changes are seen. Mild dextroconvex scoliotic curvature is seen. Overlying soft tissues appear unremarkable. IMPRESSION: Cardiomegaly with a left-sided pleural effusion and generalized interstitial prominence. CHF is suspected. Dictated by: Homar Velazquez M.D. on 08/08/2024 at 13:43 Approved by: Homar Velazquez M.D. on 08/08/2024 at 13:45
[2024-08-08 14:28] LABS: Add Manual Diff / Slide Review NO; Basophils Absolute Auto 0 /uL (0-100); Basophils Percent Auto 0.5 % (0-2); Eosinophils Absolute Auto 0 /uL (0-450); Eosinophils Percent Auto 0.4 % (2-4); Hematocrit 38.2 % (41-53); Hemoglobin 12.5 g/dL (13.5-17.5); Lymphocytes Absolute Auto 1200 /uL (1100-4500); Lymphocytes Percent Auto 14.7 % (25-40); Mean Corpuscular HGB Conc 32.9 % (30-36); Mean Corpuscular Hemoglobin 29.1 PG (26-34); Mean Corpuscular Volume 88.5 fL (80-100); Monocytes Absolute Auto 700 /uL (0-900); Monocytes Percent Auto 8.2 % (3-14); Neutrophils Absolute Auto 6300 /uL (1500-7000); Neutrophils Percent Auto 76.2 % (50-75); Platelet Count 268 X10^3/uL (150-400); Red Blood Cell Count 4.31 X10^6/uL (4.5-5.9); Red Cell Distribution Width 16.3 % (11.6-14.8); White Blood Cell Count 8.3 X10^3/uL (4.5-11.0)
[2024-08-08 14:32] LABS: INR 1.9 (0.9-1.3); Prothrombin Time 21.1 SECONDS (9.4-12.5)
[2024-08-08 14:36] LABS: Alanine Aminotransferase 27 IU/L (<50); Albumin 3.9 g/dL (3.5-5.0); Albumin Globulin Ratio 1.1 (1.0-2.8); Alkaline Phosphatase 71 U/L (38-126); Aspartate Aminotransferase 33 IU/L (17-59); BUN Creatinine Ratio 32.9 (6-22); Bilirubin Total 0.6 mg/dL (0.2-1.3); Blood Urea Nitrogen 47 mg/dL (9-20); Calcium 9.5 mg/dL (8.4-10.2); Carbon Dioxide 27 mmol/L (22-32); Chloride 107 mmol/L (98-107); Estimated Glomerular Filt Rate 50 mL/min (>60); Globulin 3.4 g/dL (1.7-4.1); Glucose 103 mg/dL (70-99); HEMOLYSIS < 15 (0-50); Lactate (Lactic Acid) 1.8 mmol/L (0.7-2.1); Potassium 4.1 mmol/L (3.4-5.1); Sodium 142 mmol/L (137-145); Total Protein 7.3 g/dL (6.3-8.2)
[2024-08-08 14:48] LABS: NT-proBNP (BNP-Adult 18+) 5140 pg/mL (<450); Troponin I 0.057 ng/mL (0.01-0.034)
--- NOTE | 2024-08-08 14:54 | ED.SOB ---
HPI - SOB/Dyspnea General Chief Complaint: Shortness of Breath/Dyspnea Stated Complaint: 9wks post cardiac surgery; SOB this am Time Seen by Provider: 08/08/24 14:28 Source: patient Mode of arrival: Wheelchair Limitations: no limitations History of Present Illness HPI Narrative: is a 78-year-old male history of coronary artery disease with recent 3 stents at [facility], atrial fibrillation on Eliquis obesity hyperlipidemia presenting today with increasing shortness of breath. He reports that he had angioplasty in May with 3 stents placed at time. He reports that he has been doing well since then. This morning he woke up and noticed he was short of breath for about 1 hour. He says symptoms went completely away he has no chest pain is overall feeling much better. He has no persistent shortness of breath denies any orthopnea. He was chronic lower extremity edema which he says is stable. No fever or chills. Generally feeling well. Followed by Dr. Marquez here in [place] Related Data Home Medications Medication Instructions Recorded Confirmed latanoprost 0.005 % eye drops 1 drp EYE-RIGHT QPM 11/21/23 07/28/24 dorzolamide 22.3 mg-timolol 6.8 1 drp EYE-RIGHT QAM AND QPM 06/02/24 07/28/24 mg/mL eye drops apixaban 5 mg tablet 5 mg PO BID 07/28/24 07/28/24 clopidogrel 75 mg tablet 75 mg PO DAILY 07/28/24 07/28/24 digoxin 125 mcg (0.125 mg) tablet 125 mcg PO DAILY 07/28/24 07/28/24 potassium chloride 10 mEq 10 meq PO DAILY 07/28/24 07/28/24 capsule,extended release torsemide 20 mg tablet 20 mg PO DAILY 07/28/24 07/28/24 Previous Rx's Medication Instructions Recorded rosuvastatin 20 mg tablet 20 mg PO DAILY #90 tabs 05/17/24 Allergies Allergy/AdvReac Type Severity Reaction Status Date / Time No Known Drug Allergies Allergy Verified 07/28/24 09:04 Patient History Medical History Recent heart attack Bladder calculi Prostate cancer BPH with obstruction/lower urinary tract symptoms Fractures Mumps (~1950) Measles (~1950) Chicken pox (~1950) Surgical History Coronary artery disease status post coronary stent insertion Anesthesia Anal fistula (~2011) Leg fracture Social History Smoking Status: Never smoker Smoking Status: Never smoker Exam Initial Vital Signs Initial Vital Signs: Vital Signs Pulse Rate 76 08/08/24 14:06 Pulse Oximetry 97 08/08/24 14:06 GENERAL: Alert very pleasant well-appearing 78-year-old male HEENT: Head atraumatic,EOMI, pupils reactive, face symmetric, moist mucous membranes CARDIOVASCULAR: Irregularly irregular with a murmur RESPIRATORY: Breath sounds equal bilaterally, no wheezes rales or rhonchi. Decreased breath sounds bases ABDOMEN: Soft, nontender. Normoactive bowel sounds all 4 quadrants. No guarding or rebound. EXTREMITIES: Normal range of motion, no clubbing +3 pitting edema bilaterally Neurovascularly intact NEUROLOGICAL: Alert and oriented x4.Normal gait and speech. Cranial nerves II through XII grossly intact. SKIN: Warm, dry, no laceration, no petechiae, no rashes or lesions. Course Orders Ordered: ED Orders 08/08/24 14:17 XR chest 1V Stat EKG-12 Lead Stat Measure peak expiratory flow STAT RT Consult Eval and Treat STAT 08/08/24 14:18 Complete Blood Count AUTO DIFF Stat Comprehensive Metabolic Panel Stat Lactate (Lactic Acid) Stat NT-proBNP (BNP-Adult 18+) Stat Prothrombin Time INR Stat Troponin I Stat 08/08/24 16:12 EKG-12 Lead Stat 08/08/24 16:15 Trop I [Troponin I] Stat Discontinued Medications Furosemide (Furosemide 40 Mg/4 Ml Vial) 20 mg IV NOW ONE Stop: 08/08/24 15:19 Last Admin: 08/08/24 16:13 Dose: 20 mg Documented By: SB Vital Signs Vital signs: Vital Signs - 8 hr 08/08/24 14:06 08/08/24 14:07 08/08/24 14:07 Temperature Pulse Rate 76 76 Respiratory Rate Blood Pressure 131/75 Pulse Oximetry 97 98 Oxygen Delivery Method 08/08/24 14:12 08/08/24 14:20 08/08/24 14:20 Temperature Pulse Rate 95 H 76 Respiratory Rate 18 15 Blood Pressure 131/75 105/52 L Pulse Oximetry 98 100 Oxygen Delivery Method Room Air 08/08/24 14:30 08/08/24 14:30 08/08/24 14:45 Temperature Pulse Rate 77 68 Respiratory Rate 24 24 Blood Pressure 106/52 L Pulse Oximetry 98 98 Oxygen Delivery Method 08/08/24 14:45 08/08/24 15:00 08/08/24 15:00 Temperature Pulse Rate 64 Respiratory Rate 18 Blood Pressure 103/51 L 99/58 L Pulse Oximetry 98 Oxygen Delivery Method 08/08/24 15:15 08/08/24 15:15 08/08/24 15:16 Temperature Pulse Rate 82 Respiratory Rate 24 Blood Pressure 89/53 L 114/58 L Pulse Oximetry 98 Oxygen Delivery Method 08/08/24 15:16 08/08/24 15:26 08/08/24 15:26 Temperature Pulse Rate 80 75 Respiratory Rate 23 23 Blood Pressure 130/63 Pulse Oximetry 100 99 Oxygen Delivery Method 08/08/24 15:30 08/08/24 15:31 08/08/24 15:31 Temperature Pulse Rate 79 79 Respiratory Rate 18 23 Blood Pressure 119/58 L Pulse Oximetry 99 98 Oxygen Delivery Method 08/08/24 15:45 08/08/24 15:45 08/08/24 16:00 Temperature Pulse Rate 79 Respiratory Rate 24 Blood Pressure 109/62 103/63 Pulse Oximetry 98 Oxygen Delivery Method 08/08/24 16:00 08/08/24 16:15 08/08/24 16:15 Temperature Pulse Rate 97 H 80 Respiratory Rate 20 Blood Pressure 117/65 Pulse Oximetry 99 Oxygen Delivery Method Room Air 08/08/24 16:30 08/08/24 16:30 08/08/24 16:45 Temperature Pulse Rate 81 Respiratory Rate Blood Pressure 118/61 135/74 Pulse Oximetry Oxygen Delivery Method 08/08/24 16:45 08/08/24 17:00 08/08/24 17:05 Temperature Pulse Rate 87 87 Respiratory Rate Blood Pressure 137/77 Pulse Oximetry 93 98 Oxygen Delivery Method Room Air 08/08/24 17:05 08/08/24 17:30 08/08/24 17:31 Temperature Pulse Rate 97 H 81 Respiratory Rate Blood Pressure 143/63 H Pulse Oximetry 98 98 Oxygen Delivery Method 08/08/24 17:31 Temperature 98.4 F Pulse Rate 77 Respiratory Rate 22 Blood Pressure Pulse Oximetry [address] [facility] - SOB/Dyspnea Lab Data 08/08/24 14:18 08/08/24 14:18 Labs: Lab Results 08/08/24 08/08/24 Range/Units 14:18 16:15 WBC 8.3 (4.5-11.0) X10^3/uL RBC 4.31 L (4.5-5.9) X10^6/uL Hgb 12.5 L (13.5-17.5) g/dL Hct 38.2 L (41-53) % MCV 88.5 (80-100) fL MCH 29.1 (26-34) PG MCHC 32.9 (30-36) % RDW 16.3 H (11.6-14.8) % Plt Count 268 (150-400) X10^3/uL Neut % (Auto) 76.2 H (50-75) % Lymph % (Auto) 14.7 L (25-40) % [place] % (Auto) 8.2 (3-14) % Eos % (Auto) 0.4 L (2-4) % Baso % (Auto) 0.5 (0-2) % Neut # (Auto) 6300 (7870-5072) /uL Lymph # (Auto) 1200 (4799-0604) /uL [place] # (Auto) 700 (0-900) /uL Eos # (Auto) 0 (0-450) /uL Baso # (Auto) 0 (0-100) /uL PT 21.1 H (9.4-12.5) SECONDS INR 1.9 H (0.9-1.3) Sodium 142 (137-145) mmol/L Potassium 4.1 (3.4-5.1) mmol/L Chloride 107 (98-107) mmol/L Carbon Dioxide 27 (22-32) mmol/L BUN 47 H (9-20) mg/dL Creatinine 1.43 H (0.66-1.25) mg/dL Estimated GFR 50 L (>60) mL/min BUN/Creatinine Ratio 32.9 H (6-22) Glucose 103 H (70-99) mg/dL Lactate 1.8 (0.7-2.1) mmol/L Calcium 9.5 (8.4-10.2) mg/dL Total Bilirubin 0.6 (0.2-1.3) mg/dL AST 33 (17-59) IU/L ALT 27 (<50) IU/L Alkaline Phosphatase 71 (38-126) U/L Troponin I 0.057 H 0.060 H (0.01-0.034) ng/mL NT-Pro-B Natriuret Pep 5140 H (<450) pg/mL Total Protein 7.3 (6.3-8.2) g/dL Albumin 3.9 (3.5-5.0) g/dL Globulin 3.4 (1.7-4.1) g/dL Albumin/Globulin Ratio 1.1 (1.0-2.8) Imaging Data Chest x-ray: Radiologist's Impression: PROCEDURE: XR CHEST 1V INDICATIONS: Shortness of breath TECHNIQUE: One view of the chest was acquired. COMPARISON: [facility], CT, CT ABDOMEN PELVIS W CON, 07/26/2024, 11:51. FINDINGS: Surgical changes and devices: None. Lungs and pleura: There is blunting of the left costophrenic angle. The right lung appears clear. No pneumothorax is seen. Generalized interstitial prominence is seen. No focal infiltrates are seen. Mediastinum: Mediastinal contours appear normal. Heart size is moderately enlarged. Bones and chest wall: No suspicious bony lesions. Age-appropriate bony degenerative changes are seen. Mild dextroconvex scoliotic curvature is seen. Overlying soft tissues appear unremarkable. IMPRESSION: Cardiomegaly with a left-sided pleural effusion and generalized interstitial prominence. CHF is suspected. Dictated by: Homar Velazquez M.D. on 08/08/2024 at 13:43 Approved by: Homar Velazquez M.D. on 08/08/2024 at 13:45 ECG Data Attestation: I personally reviewed and interpreted this ECG as follows: Prior ECG tracings: not available for review Interpretation: Atrial fibrillation rate 70 no ischemia no priors to compare MDM Narrative Medical decision making narrative: MDM CC: Shortness of Complicating co-morbidities: Coronary artery disease with stent times 3 atrial fibrillation Eliquis obesity hypertension hyperlipidemia Data collected from: Patient and Medical records reviewed: Hospitalization record review from 06/03/2024. Chest x-ray at that time actually did show cardiomegaly and pulmonary edema that he had elevated troponin, diagnosed with NSTEMI acute onset of heart failure. He was found to have proximal LAD with severe stenosis of 99% as well as 1st diagonal severe stenosis status post bifurcation stents. It was reported that he still had short of breath after the procedure he was diuresed with IV Lasix and breathing steadily improved. AFib but was rate controlled on digoxin and did not tolerate beta-taty due to low blood pressure. EF noted to be 35% Differential considered: CHF CAD PE Exam documented above, pertinent findings include: Alert pleasant well-appearing 78-year-old male decreased breath sounds bilaterally no respiratory distress bilateral pitting edema appears stable irregular heart rate positive murmur Lab Test results independently reviewed as above. Pertinent findings: Troponin 0.057-->0.060 BNP 5140 CBC no leukocytosis no anemia CMP sodium 142 potassium 4.1 chloride 107 carbon dioxide 27 BUN 47 creatinine 1.43 glucose 103 Lactate 1.8 Independently reviewed EKG as above Atrial fibrillation no ischemia Imaging studies independently reviewed: Chest x-ray cardiomegaly with left-sided pleural effusion Consultations: 1730 Dr. Jeb Mcduffie, cardiology from [facility] updated on patient's symptoms test results agrees with outpatient follow-up recommends calling office 1st thing in the morning Treatments: Lasix Re-evaluations: Patient is urinated multiple times after 20 mg of IV Lasix Discussion: Patient is a 78-year-old male with history of CAD with 3 recent stents presenting today with a brief episode of shortness of breath. He has no conversational dyspnea or evidence of respiratory distress. He was chronic lower extremity edema which does not seem to be any worse. He does have pulmonary edema and cardiomegaly on his X along with elevated BNP, suggestive of some mild fluid overload. Troponin also indeterminate with a minimal increase on the 2nd draw. He has no chest pain EKGs does show AFib but no ischemia. Cardiology was consulted who agreed with discharge home and close outpatient follow-up. Patient appears nontoxic he is able to stand up and urinate in the urinal multiple times while in the ED. Discussion with him about following up with cardiology which he agreed to. Discharge Plan Departure Patient Disposition: Home Clinical Impression: CHF (congestive heart failure) Instructions: Heart Failure Activity Restrictions/Additional Instructions: *You have been diagnosed with congestive heart failure *What to do: At this time blood work is overall reassuring I discussed case with Cardiology. Call Dr. Marquez's office 1st thing in the morning and check in with. I spoke with Dr. Mcduffie today. *Continue to take medications as directed No changes at this time *Follow up with your primary care provider in 2-3 days or call [phone] *Return to ER if you should have increasing chest pain shortness of breath weakness or any new, worsening or concerning symptoms Prescriptions: No Action rosuvastatin 20 mg tablet 20 mg PO DAILY Qty: 90 3RF latanoprost 0.005 % drops 1 drp EYE-RIGHT QPM dorzolamide-timolol 22.3-6.8 mg/mL drops 1 drp EYE-RIGHT QAM AND QPM apixaban 5 mg tablet 5 mg PO BID potassium chloride 10 mEq capsule, extended release 10 meq PO DAILY digoxin 125 mcg (0.125 mg) tablet 125 mcg PO DAILY torsemide 20 mg tablet 20 mg PO DAILY clopidogrel 75 mg tablet 75 mg PO DAILY Referrals: Kvng Boone MD [Primary Care Provider] - Stand Alone Forms: Patient Portal/API/Survey
--- NOTE | 2024-08-08 16:12 | EKG_ITS ---
[id number] [place] [address] Test Date: 2024-08-08 Pat Name: John Brown Department: [facility] Room: Gender: Male Merchandising Team Lead: ILAHILDA : 1945 Requested By: Order Number: [id number] Reading MD: Adonay Miranda MD Measurements Intervals [place] Rate: 65 P: [place]: QRS: 31 QRSD: 96 T: 82 QT: 406 QTc: 422 Interpretive Statements Atrial fibrillation Cannot rule out Anteroseptal infarct , age undetermined Electronically Signed On 08-09-2024 7:28:39 PDT by Adonay Miranda MD
[2024-08-08] MEDS: FUROSEMIDE 40 MG/4 ML VIAL 20 MG IV (16:13)
--- NOTE | 2024-08-08 16:26 | PC.NURSE ---
Pt medicated per MAY. Pt has urinals at bedside. Told to use call light for any needs, including if needing to urinate. SUPPLEMENTAL MANAGER's aware as well.
--- NOTE | 2024-08-08 16:27 | PC.NURSE ---
ASSISTANT PRESS OPERATOR OFFSET Note: Advised patient and to please use the call light for assistance if needing to stand to urinate and to also call to empty urinals.
== END 2024-08-08 17:55 | disposition home or self-care (01) ==
PROVIDERS: Emergency Provider Emergency Medicine; PCP Family Medicine
DX: I50.9 Heart failure, unspecified (principal); I25.10 Atherosclerotic heart disease of native coronary artery without angina pectoris; I48.91 Unspecified atrial fibrillation; Z79.01 Long term (current) use of anticoagulants; Z95.5 Presence of coronary angioplasty implant and graft
CPT/HCPCS: 36415; 71045; 80053; 83605; 83880; 84484; 85025; 85610; 93005; 93010; 96374; 99284; J1938

== ENCOUNTER → 2024-08-27 10:05 | Outpatient (CLI) | payer MEDICARE, OTHER, SELFPAY ==
--- NOTE | 2024-08-27 10:09 | DI.MRI.S_ITS ---
PROCEDURE: MR OPTIC NRV WWO CON INDICATIONS: Prior loss of vision of both thighs, May 2024. Please evaluate for lesions or tumor TECHNIQUE: Noncontrast sagittal T1 spin echo, axial FLAIR, axial gradient echo, axial diffusion and ADC acquired through the brain. Coronal STIR, thin-slice axial T1 spin echo through the orbits. After the administration of contrast, thin-slice axial and coronal T1 spin echo with fat saturation through the orbits, axial and coronal and sagittal T1 spin echo with fat saturation through the brain. COMPARISON: , MR, MR IAC (BRAIN) WWO CON, 05/30/2021, 12:10. , MR, MR ANGIO HEAD WO CON, 08/27/2024, 10:23. FINDINGS: Image quality: This examination is limited by involuntary motion artifact. Orbits: Globes are symmetrical. Note is made of bilateral lens replacements. The optic nerves are normal in size, without abnormal signal or enhancement. No retrobulbar masses or fat abnormalities. The extra-ocular muscles are normal and symmetric in appearance. Lacrimal glands are normal. Optic chiasm is normal. Periorbital soft tissues appear normal. CSF spaces: Ventricles are normal in size and shape. Basal cisterns are patent. No extra-axial fluid collections. 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 No intracranial bleeds or mass effects. No abnormal intracranial enhancement. [place]-white matter interface is intact. Diffusion weighted images demonstrate no acute ischemic insults. Pituitary gland appears normal, without sellar or suprasellar masses. Brainstem appears normal. Normal intravascular flow voids are present. Skull and face: Calvarial marrow is normal in signal. Sinuses: No significant paranasal sinus disease is seen. There is a small amount of left mastoid air cell fluid. 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 No findings of acute or subacute infarction can be seen. No masses or abnormal enhancement can be seen. Additional findings: Lens replacements Small amount of left mastoid air cell fluid Dictated by: Homar Velazquez M.D. on 08/28/2024 at 10:19 Approved by: Homar Velazquez M.D. on 08/28/2024 at 10:22
[2024-08-27 12:21] LABS: Alanine Aminotransferase 24 IU/L (<50); Albumin 3.7 g/dL (3.5-5.0); Albumin Globulin Ratio 1.3 (1.0-2.8); Alkaline Phosphatase 88 U/L (38-126); Aspartate Aminotransferase 27 IU/L (17-59); BUN Creatinine Ratio 32.9 (6-22); Bilirubin Total 0.6 mg/dL (0.2-1.3); Blood Urea Nitrogen 52 mg/dL (9-20); Calcium 9.4 mg/dL (8.4-10.2); Carbon Dioxide 26 mmol/L (22-32); Chloride 104 mmol/L (98-107); Estimated Glomerular Filt Rate 44 mL/min (>60); Globulin 2.8 g/dL (1.7-4.1); Glucose 103 mg/dL (70-99); HEMOLYSIS < 15 (0-50); Potassium 4.3 mmol/L (3.4-5.1); Sodium 138 mmol/L (137-145); Total Protein 6.5 g/dL (6.3-8.2)
== END ==
PROVIDERS: PCP Family Medicine; Referring Provider Optometrist; Visit Provider Optometrist
DX: H53.462 Homonymous bilateral field defects, left side (principal); H53.451 Other localized visual field defect, right eye; I50.21 Acute systolic (congestive) heart failure; C61 Malignant neoplasm of prostate; N21.0 Calculus in bladder; N32.81 Overactive bladder; R35.1 Nocturia
CPT/HCPCS: 36415; 70543; 70544; 70553; 80053; 99213; A9579

== ENCOUNTER → 2024-08-27 10:12 | Outpatient (CLI) | payer MEDICARE, OTHER, SELFPAY ==
--- NOTE | 2024-08-27 10:13 | DI.MRI.S_ITS ---
PROCEDURE: MR ANGIO HEAD WO CON INDICATIONS: Other localized visual field defect TECHNIQUE: Noncontrast axial 3-D [id number] MR angiogram, with 3-dimensional maximum intensity projection (MIP) reformats of the internal carotid arteries and posterior circulation then performed. COMPARISON: Located [facility], , OPTIC NRV WWO CON, 08/27/2024, 10:36. FINDINGS: Image quality: This examination is limited by involuntary motion artifact. Anterior circulation: Intracranial internal carotid arteries demonstrate normal size and intraluminal flow signal. The flow within the paired anterior cerebral arteries is normal and symmetric. The flow within the middle cerebral arteries is normal and symmetric. The anterior communicating artery is seen. No stenoses, occlusions, or aneurysms. Posterior circulation: Visualized portions of the vertebral arteries demonstrate normal caliber, and join to form a normal appearing basilar artery. The flow within the posterior cerebral arteries is normal and symmetric. No stenoses, occlusions, or aneurysms. IMPRESSION: No imaging explanation is found for this patient's presenting symptoms. No significant intracranial arterial abnormality is seen. Dictated by: Homar Velazquez M.D. on 08/28/2024 at 10:17 Approved by: Homar Velazquez M.D. on 08/28/2024 at 10:19
== END ==
PROVIDERS: PCP Family Medicine; Referring Provider Optometrist; Visit Provider Optometrist
DX: H53.462 Homonymous bilateral field defects, left side (principal); H53.451 Other localized visual field defect, right eye
CPT/HCPCS: 70544